=== PATIENT | female | born 1990 | race Caucasian/White ===

== ENCOUNTER 2020-06-26 19:43 | Emergency (ER) | payer MEDICAID ==
[~2020-06-26] VITALS: Ht 167.7 cm; Wt 99.7 kg
--- NOTE | 2020-06-26 20:24 | ED Headache ---
General Chief Complaint: Head/Cervical Problems Stated Complaint: AG Source: patient Exam Limitations: no limitations History of Present Illness Date Seen by Provider: Jun 26, 2020 Time Seen by Provider: 20:22 Initial Comments To ER with reports of daily headaches for 1 year. She just moved here from [place] and would like to get these worked up. She has an appointment with [facility] on the of this month. She takes Lexapro and Vistaril daily. Timing/Duration: constant, other Severity/Quality: moderate Location: global Prior Headaches/Recent Trauma: frequent headaches Associated Symptoms: nausea/vomiting Allergies and Home Medications Allergies Coded Allergies: No Known Drug Allergies (Unverified , 06/26/20) Patient Home Medication List Home Medication List Reviewed: Yes Review of Systems Review of Systems Constitutional: see HPI; No chills, No dizziness, No fever Eyes: No Symptoms Reported Ears, Nose, Mouth, Throat: no symptoms reported Respiratory: no symptoms reported Cardiovascular: no symptoms reported Genitourinary: no symptoms reported Musculoskeletal: see HPI Psychiatric/Neurological: No Symptoms Reported, Headache Physical Exam Vital Signs Capillary Refill : Height, Weight, BMI Height: '" Weight: lbs. oz. kg; BMI Method: General Appearance: WD/WN, no apparent distress HEENT: PERRL/EOMI, normal ENT inspection, TMs normal Neck: non-tender, full range of motion Respiratory: normal breath sounds, no respiratory distress, no accessory muscle use Extremities: normal range of motion, non-tender Psychiatric: alert, oriented x 3 Skin: normal color, warm/dry Progress/Results/Core Measures Results/Orders My Orders Orders - CARRIE MENJIVAR APRN Ct Head Wo (06/26/20 20:21) Ketorolac Injection (Toradol Injection) (06/26/20 20:30) Prochlorperazine Injection (Compazine In (06/26/20 20:30) Diphenhydramine Injection (Benadryl Inje (06/26/20 20:30) Departure Impression Primary Impression: Headache Disposition: 01 HOME, SELF-CARE Condition: Stable Departure-Patient Inst. Decision time for Depature: 20:24 Referrals: [facility] (PCP) Primary Care Physician MAITE LEA APRN (Family) Primary Care Physician Patient Instructions: Headache, Adult (DC) Add. Discharge Instructions: All discharge instructions reviewed with patient and/or family. Voiced understanding. Scripts Topiramate (Topamax) 25 Mg Tablet 25 MG PO UD, #30 TAB Week one: 25 mg at bedtime Week two: 25 mg twice a day Prov: CARRIE MENJIVAR APRN 06/26/20 CARRIE MENJIVAR APRN Jun 26, 2020 20:24
[2020-06-26] MEDS ORDERED: KETOROLAC 60 MG/2 ML VIAL IM ONE (20:30)
[2020-06-26] MEDS ORDERED: diphenhydrAMINE 50 MG/ML INJ (BENADRYL) IM ONE (20:30)
[2020-06-26] MEDS ORDERED: PROCHLORPERAZINE 10 MG/2ML INJ (COMPAZINE) IM ONE (20:30)
[2020-06-26] MEDS ORDERED: TPR25T PO (20:32)
--- NOTE | 2020-06-26 21:02 | Diagnostic Imaging Report ---
PROCEDURE: CT head without contrast. TECHNIQUE: Multiple contiguous axial images were obtained through the brain without the use of intravenous contrast. Auto Exposure Controls were utilized during the CT exam to meet ALARA standards for radiation dose reduction. INDICATION: Hypertension and headache with stabbing pain FINDINGS: Ventricles and sulci are within normal limits for size. There is no intracranial hemorrhage identified. There is no abnormal mass effect or shift of midline structures. IMPRESSION: Unremarkable CT of the head. Dictated by: Dictated on workstation # [id number]
[2020-06-26 21:17] VITALS: BP 138/80
== END 2020-06-26 21:19 | disposition home or self-care (01) ==
LOC: ER 19:46
DX: R51.9 Headache, unspecified (principal)
CPT/HCPCS: 70450; 96372

== ENCOUNTER 2020-07-22 19:49 | Emergency (ER) | payer MEDICAID, OTHER ==
[~2020-07-22] VITALS: Ht 167 cm; Wt 100.0 kg
[~2020-07-22 19:49] MED LIST: TPR25T PO
--- NOTE | 2020-07-22 20:17 | ED Upper Extremity ---
General Chief Complaint: Upper Extremity Stated Complaint: L ELBOW INJ Nursing Triage Note: PT TO ED W/ C/O LT ELBOW PAIN ONSET 1300 TODAY. PT REPORTS SHE HIT HER ELBOW ON THE CORNER OF A DOOR. NO OTHER C/O VOICED. Nursing Sepsis Screen: No Definite Risk Source: patient Exam Limitations: no limitations (CARLA SOTELO) History of Present Illness Date Seen by Provider: July 22, 2020 Time Seen by Provider: 20:00 Initial Comments Pt presents to ED via private vehicle with complaint of L elbow pain. Started at 1pm today when she hit her elbow on the corner of her shower as she was getting out. She says is has been getting worse and currently rates it at 4/10 pain. The pain moves from the posterior-lateral side of the L elbow down to her index finger. States that bearing weight with her arm makes it worse and rubbing it makes it better. She has taken 800mg Ibuprofen 2hrs ago with no relief. No prior history of elbow injury or similar complaints. No significant medical/surgical history. Denies chest pain, SOB, N/V. Location Injury Occurred: Home Onset: this afternoon Severity: mild Pain/Injury Location: left elbow Method of Injury: direct blow Modifying Factors: Improves With Other (weight bearing exacerbates) (CARLA SOTELO STUDENT) Allergies and Home Medications Allergies Coded Allergies: No Known Drug Allergies (Unverified , 06/26/20) Home Medications Topiramate 25 Mg Tablet, 25 MG PO UD Week one: 25 mg at bedtime Week two: 25 mg twice a day Prescribed by: CARRIE MENJIVAR on 06/26/202031 Patient Home Medication List Home Medication List Reviewed: Yes (CARLA SOTELO STUDENT) Review of Systems Constitutional: No chills, No dizziness, No fever, No weakness EENTM: No hearing loss, No vision loss Respiratory: No cough, No hemoptysis, No short of breath Cardiovascular: No chest pain, No edema Gastrointestinal: No abdominal pain, No constipation, No diarrhea, No nausea, No vomiting Genitourinary: No dysuria, No hematuria Musculoskeletal: No back pain; joint pain; No joint swelling Skin: No change in color, No lesions, No rash Psychiatric/Neurological: Denies Headache, Denies Numbness, Denies Paresthesia, Denies Tingling, Denies Weakness (CARLA SOTELO STUDENT) All Other Systems Reviewed Negative Unless Noted: Yes (CARLA SOTELO STUDENT) Past [place]-Fenrxt-Minfeb Hx Past Med/Social Hx: Reviewed Nursing Past Med/Soc Hx (CARLA SOTELO) Patient Social History Alcohol Use: Denies Use Drug of Choice: HX OF SUBSTANCE ABUSE Smoking Status: Current Everyday Smoker Type Used: Cigarettes Recent Infectious Disease Expo: No Recent Hopitalizations: No (CARLA SOTELO) Seasonal Allergies Seasonal Allergies: No (CARLA SOTELO) Past Medical History Surgeries: Yes Section Respiratory: No Cardiac: No Neurological: No Genitourinary: No Gastrointestinal: No Musculoskeletal: No Endocrine: No HEENT: No Cancer: No Psychosocial: Yes (HX SUBSTANCE ABUSE-CLEAN SINCE 2015) Anxiety, Depression Integumentary: No (CARLA SOTELO) Physical Exam Vital Signs Vital Signs - First Documented 07/22/20 19:53 Temp 36.7 Pulse 91 Resp 18 B/P (MAP) 116/70 (85) Pulse Ox 99 O2 Delivery Room Air (LUISA GRIFFIN) Vital Signs Capillary Refill : Less Than 3 Seconds (CARLA SOTELO) Height, Weight, BMI Height: '" Weight: lbs. oz. kg; 35.00 BMI Method: General Appearance: WD/WN, no apparent distress HEENT: PERRL/EOMI, normal ENT inspection Neck: non-tender, full range of motion, supple, normal inspection Cardiovascular: normal peripheral pulses, regular rate, rhythm, no edema Respiratory: no respiratory distress, no accessory muscle use Gastrointestinal: non tender, soft Back: normal inspection, no CVA tenderness, no vertebral tenderness Shoulder: normal inspection, non-tender, no evidence of injury, normal ROM Elbow/Forearm: Left, pain, soft tissue tenderness Wrist: Yes normal inspection, Yes non-tender, Yes no evidence of injury, Yes normal ROM Hand: normal inspection, non-tender, no evidence of injury, normal ROM Reflexes: 2+ bicep (R), 2+ bicep (L), 2+ tricep (R), 2+ tricep (L) Neurologic/Tendon: normal sensation, normal motor functions, normal tendon functions, responds to pain, no evidence tendon injury Neurologic/Psychiatric: no motor/sensory deficits, alert, normal mood/affect, oriented x 3 Skin: normal color, warm/dry Lymphatic: no adenopathy (CARLA SOTELO MED STUDENT) Progress/Results/Core Measures Results/Orders My Orders Orders - LUISA GRIFFIN Elbow, Left, 3 Views (07/22/20 20:10) (LUISA GRIFFIN) Vital Signs/I&O 07/22/20 19:53 Temp 36.7 Pulse 91 Resp 18 B/P (MAP) 116/70 (85) Pulse Ox 99 O2 Delivery Room Air (LUISA GRIFFIN) Blood Pressure Mean: 85 Progress Progress Note : Time: 20:26 Progress Note Unremarkable x-ray. Rice therapy. I attest that I saw this patient alongside the medical student and agree with his documented history, physical exam and review of systems except as otherwise noted. (LUISA GRIFFIN) Diagnostic Imaging Diagonstic Imaging: Xray Plain Films/CT/US/NM/MRI: elbow (CARLA SOTELO MED STUDENT) Departure Impression Primary Impression: Contusion of elbow Qualified Codes: S50.02XA - Contusion of left elbow, initial encounter Disposition: HOME, SELF-CARE Condition: Stable Departure-Patient Inst. Decision time for Depature: 20:27 (LUISA GRIFFIN) Referrals: [facility] (PCP) Primary Care Physician MAITE LEA APRN (Family) Primary Care Physician Patient Instructions: Contusion (DC) Add. Discharge Instructions: Clearly you have a contusion of your left elbow which includes the ulnar nerve which is causing your pain going down your wrist. Should improve over the next couple days. You can keep the arm elevated above the level of your heart to reduce swelling and pain. Wrap the arm with an Charli wrap especially around the elbow to reduce pain. Tylenol and ibuprofen as necessary for pain. Ice for 20 minutes every 2 hours for the first couple days around the elbow to reduce swelling and pain. Typically symptoms should start to improve in the first couple days and be gone in a week. If they persist for longer than that then you need to follow-up with your primary care doctor for reevaluation. All discharge instructions reviewed with patient and/or family. Voiced understanding. Work/School Note: Work Release Form Date Seen in the Emergency Department: July 22, 2020 Return to Work: July 23, 2020 Restrictions: Need Release from Doctor Other Restrictions Listed Below: Do not lift more than 20 pounds with the left arm until 07/30/2019. CARLA SOTELO MED STUDENT July 22, 2020 20:17 LUISA GRIFFIN July 22, 2020 20:31
--- NOTE | 2020-07-22 20:35 | Diagnostic Imaging Report ---
INDICATION: Elbow pain. COMPARISON: None. EXAMINATION: Three views of the left elbow show no fracture, dislocation, or other acute bony abnormality identified. Joint spaces are well maintained throughout. The soft tissues appear unremarkable. No radiopaque foreign body is identified. IMPRESSION: No acute fracture or dislocation of the left elbow. Dictated by: Dictated on workstation # [id number]
[2020-07-22 20:37] VITALS: BP 0/0
== END 2020-07-22 20:37 | disposition home or self-care (01) ==
LOC: EDUNIT# 19:49 → ER 19:50
DX: S50.02XA Contusion of left elbow, initial encounter (principal); F17.210 Nicotine dependence, cigarettes, uncomplicated; W22.8XXA Striking against or struck by other objects, initial encounter; Y92.009 Unspecified place in unspecified non-institutional (private) residence as the place of occurrence of the external cause
CPT/HCPCS: 73080

== ENCOUNTER 2020-10-08 11:41 | Emergency (ER) | payer MEDICAID | END 2020-10-08 12:30 | disposition left against medical advice (07) | LOC: EDUNIT# 11:41 → ER 11:45 | DX: R51.9 Headache, unspecified (principal) ==

== ENCOUNTER 2020-12-28 18:52 | Emergency (ER) | payer MEDICAID ==
[~2020-12-28] VITALS: Ht 167.7 cm; Wt 100.0 kg
[2020-12-28 19:00] VITALS: BP 140/74
[2020-12-28] MEDS ORDERED: VALA500T7 PO (19:08)
[2020-12-28] MEDS ORDERED: FLUC150T PO (19:08)
--- NOTE | 2020-12-28 19:09 | ED GU-Female ---
General Stated Complaint: GENITAL RASH Source: patient Exam Limitations: no limitations History of Present Illness Date Seen by Provider: Dec 28, 2020 Time Seen by Provider: 19:04 Initial Comments Genital rash x3 days. HX of herpes and has painful sores and believes she has an outbreak currently. Also has generalized redness and whitish material believed t o be a yeast infection. Timing/Duration: constant Severity/Quality: moderate Location: vaginal Radiation: none Activities at Onset: none Prior Genitourinary Problems: none Associated Symptoms: denies symptoms Allergies and Home Medications Allergies Coded Allergies: No Known Drug Allergies (Unverified , 06/26/20) Patient Home Medication List Home Medication List Reviewed: Yes Fluconazole (Diflucan) 150 Mg Tablet, 150 MG PO DAILY Prescribed by: CARRIE MENJIVAR on 12/28/201907 Topiramate (Topamax) 25 Mg Tablet, 25 MG PO UD Prescribed by: CARRIE MENJIVAR on 06/26/202031 Valacyclovir HCl (Valacyclovir) 500 Mg Tablet, 500 MG PO BID Prescribed by: CARRIE MENJIVAR on 12/28/201907 Review of Systems Review of Systems Constitutional: see HPI EENTM: see HPI Respiratory: no symptoms reported Cardiovascular: no symptoms reported Genitourinary: see HPI Musculoskeletal: no symptoms reported Skin: no symptoms reported Psychiatric/Neurological: No Symptoms Reported Endocrine: No Symptoms Reported Past Xeyykzg-Jmkzgb-Bcppqw Hx Seasonal Allergies Seasonal Allergies: No Past Medical History Surgeries: Yes Section Respiratory: No Cardiac: No Neurological: No Genitourinary: No Gastrointestinal: No Musculoskeletal: No Endocrine: No HEENT: No Cancer: No Psychosocial: Yes (HX SUBSTANCE ABUSE-CLEAN SINCE 2015) Anxiety, Depression Integumentary: No Physical Exam Vital Signs Capillary Refill : Height, Weight, BMI Height: '" Weight: lbs. oz. kg; 35.00 BMI Method: General Appearance: WD/WN, no apparent distress Neck: non-tender, full range of motion Respiratory: no respiratory distress, no accessory muscle use Pelvic: discharge (whitish adherent with erythema of labial folds. 2 separate shallow 2mm in diameter ulcers on erythematous base on labia. ) Extremities: normal range of motion, non-tender Neurologic/Psychiatric: alert, normal mood/affect, oriented x 3 Skin: normal color, warm/dry Progress/Results/Core Measures Suspected Sepsis SIRS Temperature: Pulse: Respiratory Rate: Blood Pressure / Mean: Results/Orders My Orders Orders - CARRIE MENJIVAR APRN Valacyclovir Tablet (Valtrex Tablet) (12/28/20 19:15) Fluconazole Tablet (Ed Only) (Diflucan T (12/28/20 19:15) Vital Signs/I&O Capillary Refill : Departure Communication (Admissions) Genital exam with warehouse pricing and inventory clerk Obdulia RN at bedside. Impression Primary Impression: Genital herpes Additional Impression: Vulvovaginal candidiasis Disposition: 01 HOME, SELF-CARE Condition: Stable Departure-Patient Inst. Decision time for Depature: 19:07 Referrals: [facility] (PCP) Primary Care Physician MAITE LEA APRN (Family) Primary Care Physician Patient Instructions: Genital Herpes Scripts Valacyclovir HCl (Valacyclovir) 500 Mg Tablet 500 MG PO BID, #6 TAB Prov: CARRIE MENJIVAR APRN 12/28/20 Fluconazole (Diflucan) 150 Mg Tablet 150 MG PO DAILY, #5 TAB Prov: CARRIE MENJIVAR APRN 12/28/20 CARRIE MENJIVAR APRN Dec 28, 2020 19:09
[2020-12-28] MEDS ORDERED: FLUCONAZOLE 150 MG TABLET (ED ONLY) PO ONE (19:15)
[2020-12-28] MEDS ORDERED: VALACYCLOVIR 500 MG TAB (VALTREX) PO SCH (19:15)
== END 2020-12-28 19:20 | disposition home or self-care (01) ==
LOC: EDUNIT# 18:52 → ER 18:54
DX: A60.04 Herpesviral vulvovaginitis (principal); B37.3 Candidiasis of vulva and vagina
CPT/HCPCS: 99283

== ENCOUNTER 2021-03-24 16:34 | Emergency (ER) | payer MEDICAID ==
[~2021-03-24] VITALS: Ht 167.7 cm; Wt 97.5 kg
[~2021-03-24 16:34] MED LIST changes: +FLUC150T PO; +VALA500T7 PO
[2021-03-24 16:48] VITALS: BP 119/75
--- NOTE | 2021-03-24 16:59 | ED Headache ---
General Chief Complaint: Head/Cervical Problems Stated Complaint: MIGRAINE X 2 DAYS Source: patient Exam Limitations: no limitations History of Present Illness Date Seen by Provider: Mar 24, 2021 Time Seen by Provider: 16:57 Initial Comments To ER by private vehicle with reports of headache since last night. This is left-sided and associated with photophobia and nausea. He has a history of migraines on Topamax for that. This is similar to her previous migraines though typically they are on the right side and this is on the left side. No fever no chills no recent illness no head injury. Timing/Duration: 24 hours Severity/Quality: moderate Location: parietal Prior Headaches/Recent Trauma: frequent headaches Modifying Factors: worse with exposure to light Associated Symptoms: nausea/vomiting Allergies and Home Medications Allergies Coded Allergies: No Known Drug Allergies (Unverified , 06/26/20) Patient Home Medication List Home Medication List Reviewed: Yes Fluconazole (Diflucan) 150 Mg Tablet, 150 MG PO DAILY Prescribed by: CARRIE MENJIVAR on 12/28/201907 Topiramate (Topamax) 25 Mg Tablet, 25 MG PO UD Prescribed by: CARRIE MENJIVAR on 06/26/202031 Valacyclovir HCl (Valacyclovir) 500 Mg Tablet, 500 MG PO BID Prescribed by: CARRIE MENJIVAR on 12/28/201907 Review of Systems Review of Systems Constitutional: see HPI Eyes: No Symptoms Reported Ears, Nose, Mouth, Throat: no symptoms reported Respiratory: no symptoms reported Cardiovascular: no symptoms reported Genitourinary: no symptoms reported Musculoskeletal: no symptoms reported Skin: no symptoms reported Psychiatric/Neurological: No Symptoms Reported Past Sdmfwwd-Atlzzj-Fzschd Hx Patient Social History Tobacco Use?: Yes Tobacco type used: Cigarettes Substance use?: No Alcohol Use?: Yes Alcohol Frequency: Once in a while Pt feels they are or have been: No Immunizations Up To Date First/Initial COVID19 Vaccinat: MODERN2020 Second COVID19 Vaccination Colin: 2020 COVID19 Vaccine Adjudication Specialist: MODERNA Seasonal Allergies Seasonal Allergies: No Past Medical History Surgeries: Yes Section Respiratory: No Cardiac: No Neurological: No Genitourinary: No Gastrointestinal: No Musculoskeletal: No Endocrine: No HEENT: No Cancer: No Psychosocial: Yes (HX SUBSTANCE ABUSE-CLEAN SINCE 2015) Anxiety, Depression Integumentary: No Physical Exam Vital Signs Capillary Refill : Height, Weight, BMI Height: '" Weight: lbs. oz. kg; 35.00 BMI Method: General Appearance: WD/WN, no apparent distress HEENT: PERRL/EOMI, normal ENT inspection, TMs normal Neck: non-tender, full range of motion Cardiovascular: regular rate, rhythm, no murmur Respiratory: no respiratory distress, no accessory muscle use Gastrointestinal: normal bowel sounds, non tender Extremities: normal range of motion, non-tender Psychiatric: alert, oriented x 3 Crainal Nerves: normal hearing, normal speech, PERRL Motor/Sensory: no motor deficit, no sensory deficit Skin: normal color, warm/dry Progress/Results/Core Measures Results/Orders My Orders Orders - CARRIE MENJIVAR APRN Ketorolac Injection (Toradol Injection) (03/24/21 17:00) Prochlorperazine Injection (Compazine In (03/24/21 17:00) Diphenhydramine Injection (Benadryl Inje (03/24/21 17:00) Departure Impression Primary Impression: Headache Disposition: 01 HOME, SELF-CARE Condition: Stable Departure-Patient Inst. Decision time for Depature: 16:58 [place] [facility] [place] Primary Care Physician MAITE LEA APRN (Family) Primary Care Physician Patient Instructions: Headache, Adult ED Add. Discharge Instructions: 1. Return to ER for any concerns 2. Follow-up with your doctor this week. All discharge instructions reviewed with patient and/or family. Voiced understanding. Work/School Note: Work Release Form Date Seen in the Emergency Department: Mar 24, 2021 Return to Work: Mar 25, 2021 CARRIE MENJIVAR APRN Mar 24, 2021 16:59
[2021-03-24] MEDS ORDERED: PROCHLORPERAZINE 10 MG/2ML INJ (COMPAZINE) IM ONE (17:00)
[2021-03-24] MEDS ORDERED: KETOROLAC 60 MG/2 ML VIAL IM ONE (17:00)
[2021-03-24] MEDS ORDERED: diphenhydrAMINE 50 MG/ML INJ (BENADRYL) IM ONE (17:00)
== END 2021-03-24 17:35 | disposition home or self-care (01) ==
LOC: EDUNIT# 16:34 → ER 16:38
DX: R51.9 Headache, unspecified (principal); Z72.0 Tobacco use
CPT/HCPCS: 99284

== ENCOUNTER 2021-04-12 14:38 | Emergency (ER) | payer MEDICAID ==
[~2021-04-12] VITALS: Ht 165 cm; Wt 81.0 kg
--- NOTE | 2021-04-12 15:35 | ED General ---
General Chief Complaint: Abdominal/GI Problems Stated Complaint: AG,N/V,BACK PAIN Source of Information: Patient Exam Limitations: No Limitations History of Present Illness Date Seen by Provider: Apr 12, 2021 Time Seen by Provider: 15:32 Initial Comments To ER by private vehicle accompanied by significant other. She has Covid symptoms for 2 to 3 days. She is vaccinated patient with positive home test but her boss wants a rapid swab done today. Patient's boyfriend is also being tested for the same thing as his boss at [employer] would like a swab they state. She herself works at [employer]. Timing/Duration: 1-2 Days Severity: Moderate Associated Systoms: Denies Symptoms Allergies and Home Medications Allergies Coded Allergies: No Known Drug Allergies (Unverified , 06/26/20) Patient Home Medication List Home Medication List Reviewed: Yes Fluconazole (Diflucan) 150 Mg Tablet, 150 MG PO DAILY Prescribed by: CARRIE MENJIVAR on 12/28/201907 Topiramate (Topamax) 25 Mg Tablet, 25 MG PO UD Prescribed by: CARRIE MENJIVAR on 06/26/202031 Valacyclovir HCl (Valacyclovir) 500 Mg Tablet, 500 MG PO BID Prescribed by: CARRIE MENJIVAR on 12/28/201907 Review of Systems Review of Systems Constitutional: see HPI, chills, malaise EENTM: see HPI Respiratory: no symptoms reported Cardiovascular: no symptoms reported Genitourinary: no symptoms reported Musculoskeletal: no symptoms reported Skin: no symptoms reported Psychiatric/Neurological: No Symptoms Reported Past Susmlls-Scwgfl-Kjkdis Hx Immunizations Up To Date First/Initial COVID19 Vaccinat: 2020 Second COVID19 Vaccination Colin: 2020 Seasonal Allergies Seasonal Allergies: No Past Medical History Surgeries: Yes Section Respiratory: No Cardiac: No Neurological: No Genitourinary: No Gastrointestinal: No Musculoskeletal: No Endocrine: No HEENT: No Cancer: No Psychosocial: Yes (HX SUBSTANCE ABUSE-CLEAN SINCE 2015) Anxiety, Depression Integumentary: No Physical Exam Vital Signs Capillary Refill : Height, Weight, BMI Height: '" Weight: lbs. oz. kg; 34.00 BMI Method: General Appearance: No Apparent Distress, WD/WN, Other (Heart rate 82 oxygen 100% room air) Eyes: Bilateral Eye Normal Inspection, Bilateral Eye PERRL HEENT: PERRL/EOMI, TMs Normal Neck: Full Range of Motion, Normal Inspection Respiratory: No Accessory Muscle Use, No Respiratory Distress Cardiovascular: Regular Rate, Rhythm, Normal Peripheral Pulses Gastrointestinal: Normal Bowel Sounds, Non Tender, Soft Extremity: Normal Capillary Refill, Normal Inspection Neurologic/Psychiatric: Alert, Oriented x3 Skin: Normal Color, Warm/Dry Progress/Results/Core Measures Suspected Sepsis SIRS Temperature: Pulse: Respiratory Rate: Blood Pressure / Mean: Results/Orders My Orders Orders - CARRIE MENJIVAR APRN Coronavirus Sars-Cov-2 So 2018 (04/12/21 15:27) Vital Signs/I&O Capillary Refill : Departure Impression Primary Impression: Person under investigation for COVID-19 Additional Impression: Viral syndrome Disposition: 01 HOME, SELF-CARE Condition: Stable Departure-Patient Inst. Decision time for Depature: 15:34 Referrals: [facility] (PCP) Primary Care Physician MAITE LEA APRN (Family) Primary Care Physician Patient Instructions: No Instuctions Given Add. Discharge Instructions: 1. Tylenol and ibuprofen for fever or pain control wwlo-vpr-fdvmjni DayQuil NyQuil is fine as well. We would expect Covid swabs to be resulted in about 24 hours. All discharge instructions reviewed with patient and/or family. Voiced understanding. Work/School Note: Work Release Form Date Seen in the Emergency Department: Apr 12, 2021 Return to Work: Apr 15, 2021 CARRIE MENJIVAR APRN Apr 12, 2021 15:34
== END 2021-04-12 15:42 | disposition home or self-care (01) ==
LOC: EDUNIT# 14:38 → ER 14:39
DX: B34.9 Viral infection, unspecified (principal); Z20.822 Contact with and (suspected) exposure to COVID-19
CPT/HCPCS: 87635; 99283